=== PATIENT | male | born 1955 | race Caucasian/White ===

== ENCOUNTER 2018-11-05 02:28 | Emergency (ER) | payer BC, OTHER, SELFPAY ==
[2018-11-05 02:29] VITALS: BP 145/79; PULSE 71; RESP 18; TEMP 37.1; O2SAT 97; BMI 34.4
[2018-11-05] MEDS: morphine 10 MG/ML Syringe IM (03:17)
--- NOTE | 2018-11-05 04:04 | ED.VISSUMM ---
- ER Visit Summary Date of Service: 11/05/18 Chief Complaint: Back pain History of Present Illness: The patient is a 63 M who presents with back pain. He has a history of prior back pain. This is been worse for about 2 weeks. He has been going to physical therapy. He was doing much better. On he had no pain and did do some increased activity at therapy. He began to have some pain in the next day. This was mild until tonight when he woke and it was severe. It is all in the right lower back. Is worse with bending or trying to sit up and relieved by remaining still. No numbness tingling weakness radiation to legs fevers abdominal pain urinary retention or fecal incontinence. No history of prior back surgery. Physical Examination: Afebrile vitals normal Moist mucous membranes Heart regular rate and rhythm Lungs clear Abdomen soft Normal inspection of the back nontender palpation Straight leg raise is negative bilaterally Normal strength and sensation of the lower extremities with 5 out of 5 dorsiflexion, plantarflexion, extensor hallucis longus Test Results: Not indicated Emergency Department Course and Treatment: Patient does not have signs or symptoms of acute serious pathology such as cauda equina syndrome or epidural abscess. I do not see an indication for any emergent imaging. He was given intramuscular morphine here. On reevaluation his pain is completely resolved. He was able to ambulate without assistance. We will provide a prescription for a short course of [place]. He was advised to continue therapy and follow-up with his primary care physician. All questions answered at bedside. Patient discharged. Treatment Plan: [] Disposition: Discharge Impression: Acute on chronic lower back pain This note was generated with [employer] dictation software. It may contain incorrect words, spelling, and punctuation that were not noted in review of the chart prior to signing ED Disposition - Plan for ED Patient: Referrals: Pino Turner [Primary Care Provider] -
--- NOTE | 2018-11-05 04:08 | DCINST.ED_ITS ---
ED Disposition - Plan for ED Patient: Instructions: BACK PAIN (Acute or Chronic) Prescriptions: Hydrocodone Bitart/Apap 5-325 [[place] 5MG-325MG] 1 tab PO Q6H PRN PRN 3 Days #12 tab PRN Reason: Pain Prescription Printed Referrals: Pino Turner [Primary Care Provider] -
[2018-11-05 04:18] VITALS: BP 127/73; PULSE 62; RESP 18; O2SAT 96
== END 2018-11-05 04:20 | disposition home or self-care (01) ==
PROVIDERS: Emergency Provider Emergency Medicine; Family Provider Family Medicine; PCP Family Medicine
DX: M54.5 Low back pain (principal); G89.29 Other chronic pain; I10 Essential (primary) hypertension; Z79.899 Other long term (current) drug therapy
CPT/HCPCS: 96372; 99284

== ENCOUNTER 2022-05-22 12:43 | Emergency (ER) | payer BC, MEDICARE, SELFPAY ==
[2022-05-22 12:44] VITALS: BP 143/99; PULSE 65; RESP 14; TEMP 36.6; O2SAT 99; BMI 30.4
--- NOTE | 2022-05-22 13:16 | EX.ED.GENINJ ---
HPI History of Present Illness Chief Complaint: Other, Pain/Inj Detail of Chief Complaint: Bite wound to tongue Informant: patient Narrative Narrative: Patient presents emergency department with a bite wound to his tongue that occurred 3 days ago. Patient states he initially went to an urgent care and they basically told him there was not much they could do for it. The bleeding stopped. Patient states he has some discomfort still to the tongue and went to another urgent care today and they referred him to a general surgeon who told him that they did not deal with tongues. Patient presents to the emergency department for evaluation. He denies fever. Patient states that the urgent care did call him in an antibiotic. Patient's had no further bleeding issues. Patient has history of hypertension otherwise no significant medical history. He is not on blood thinners. [facility] Medical History (Updated 05/22/22 @ 13:[address] Edil Lockwood, ) Cellulitis of tongue Laceration of tongue Home Medications cholecalciferol (vitamin D3) 50 mcg (2,000 unit) capsule (Vitamin D3) 2,000 unit PO DAILY 01/18/17 [History Last Taken Unknown] hydrocodone-acetaminophen 5-325mg 5mg-325mg 1 tab PO Q6H PRN PRN Pain #6 TABLETS 01/18/17 [Rx Last Taken Unknown] meloxicam 15 mg tablet 15 mg PO DAILY 01/18/17 [History Last Taken Unknown] pyridoxine (vitamin B6) 50 mg tablet 100 mg PO DAILY 01/18/17 [History Last Taken Unknown] allopurinol 300 mg tablet 300 mg PO DAILY 05/22/22 [History Last Taken Unknown] amoxicillin 500 mg capsule 500 mg PO BID 10 days #20 caps 05/22/22 [Rx Last Taken Unknown] cyclobenzaprine 5 mg tablet 5 mg PO QHS 05/22/22 [History Last Taken Unknown] hydrochlorothiazide 25 mg tablet 25 mg PO Q OTHER DAY 05/22/22 [History Last Taken Unknown] potassium chloride 10 mEq tablet,extended release(part/cryst) 10 meq PO DAILY 05/22/22 [History Last Taken Unknown] Allergy/AdvReac Type Severity Reaction Status Date / Time No Known Allergies Allergy Verified 05/22/22 12:44 Surgical History (Updated 05/22/22 @ 09:57 by Ying Valderrama) Hx of cholecystectomy Social History (Reviewed 05/22/22 @ 09:57 by Ying Guido Smoking Status: Never smoker ROS ROS ED Review of Systems ROS Unobtainable: other Constitutional Constitutional ED: Reports lethargy; Denies chills, fever(s), sweats or weight loss Eyes Eyes: Denies blurry vision, change in vision or diplopia ENT ENT ED: Reports other Details: Bite wound to tongue ; Denies rhinorrhea or sore throat Cardiovascular Cardiovascular: Reports chest pain and racing heartbeat; Denies orthopnea Respiratory/Chest Respiratory/Chest: Reports dyspnea and dyspnea on exertion; Denies cough, orthopnea or sputum Gastrointestinal Gastrointestinal: Denies abdominal pain, diarrhea, nausea or vomiting Genitourinary Genitourinary ED: Denies dysuria, hematuria or urinary frequency Musculoskeletal Musculoskeletal: Denies arthralgias, back pain, myalgias or neck pain Integumentary Denies abscess, Abrasions or rash Neurologic Neurologic: Denies headache(s) or weakness Psychiatric Psychiatric: Denies anxiety, depression or suicidal thoughts Endocrine Endocrinology: Denies polydipsia, polyphagia or polyuria Hematologic/Lymphatic Hematologic/Lymphatic: Denies easy bleeding, easy bruising or lymphadenopathy Allergic/Immunologic Allergic/Immunologic ED: Denies mouth swelling, tongue swelling or urticaria EXAM Physical Exam Const Vital Signs: 05/22/22 12:44 Temperature 98 F Temperature Source Temporal Pulse Rate 65 Respiratory Rate 14 Blood Pressure 143/99 H Blood Pressure Mean 113 Pulse Ox 99 Oxygen Delivery Method Room Air Positive well nourished and well developed General Appearance ED: well developed and NAD HEENT Reports TM's clear and moist mucous membranes HEENT Narrative: Evaluation of the tongue reveals a old wound to the lateral aspect of the right side of the tongue with a small flap measuring approximately 1.5 cm to 1 cm. Wound is in stages of healing. There is no erythema or abscess or sign of infection otherwise. normocephalic and atraumatic; Negative for trauma or tenderness Tympanic Membrane ED: Yes TM's clear Eyes PERRL and EOMs intact bilaterally General Eye ED: Negative for pale conjunctiva or scleral icterus Neck no lymphadenopathy, supple and no JVD General: Negative for tenderness Chest Wall inspection of chest normal and palpation of chest normal Chest: Negative for tenderness Resp normal respiratory effort and clear to auscultation bilaterally Effort and Inspection: Negative for respiratory distress or pain with movement Auscultation: Negative for rhonchi, wheezes or diminished lung sounds Cardio regular rate, regular rhythm, S1 normal heart sound, S2 normal heart sound and no murmurs Peripheral Pulses: pulses 2+ throughout GI normal to inspection, nondistended, normoactive bowel sounds, soft to palpation, non-tender, non-distended and no masses Back/Spine no CVA tenderness and no thoracic nor lumbar tenderness Extremity normal to inspection General Extremety ED: Negative for edema General Extremity: Negative for edema Neuro oriented x3, CN's II-XII intact bilaterally, no sensory deficits noted and gait normal Sensorium / Orientation: awake, alert, oriented to person, oriented to place and oriented to time Motor Exam: strength 5/5 throughout and strength abnormal Psych mental status grossly normal Skin no rashes or lesions noted and no wounds MDM MDM MDM Narrative Medical decision making narrative: At this pointPlan will be to discuss case with ENT to arrange follow-up. There is no emergent process that needs to be addressed as there is no bleeding. Depending on how this wound heals will need to be reevaluated if the flap does not heal properly may need small amount of resection potentially. The wound is not amenable to any type of suture repair as it is 3 days old. Case was discussed with Dr. Shane Meneses who is on-call for ENT. I was asked to send him pictures of the wound which I did send. Dr. Solares was able to evaluate the wound from the pictures and recommended at this time no further treatment was indicated. He did recommend antibiotics which patient did have prescribed to him today. Also advised him on salt water gargles. Dr. Solares would like to see him in the office in about a month to check progress of healing and to determine if any other intervention would be indicated at that time. I discussed this with patient he is comfortable with plan. Discharge Plan Triage Chief Complaint: Other, Pain/Inj ED Provider: Edil Lockwood Dx/Rx/DC Orders Clinical Impression: Laceration of tongue Instructions: ED Laceration, Old: Not Sutured, ED Laceration, Lip or Mouth Prescriptions: No Action hydrochlorothiazide 25 mg tablet 25 mg PO Q OTHER DAY potassium chloride 10 mEq tablet,ER particles/crystals 10 meq PO DAILY allopurinol 300 mg tablet 300 mg PO DAILY cyclobenzaprine 5 mg tablet 5 mg PO QHS amoxicillin 500 mg capsule 500 mg PO BID 10 Days Qty: 20 0RF meloxicam 15 MG tablet 15 mg PO DAILY pyridoxine (vitamin B6) 50 MG tablet 100 mg PO DAILY cholecalciferol (vitamin D3) [Vitamin D3] 2,000 UNIT capsule 2,000 unit PO DAILY hydrocodone-acetaminophen 1 TABLET tablet 1 tab PO Q6H PRN PRN (Reason: Pain) Qty: 6 0RF Primary Care Provider: Pino Turner Referrals: Shane Meneses MD [Med Staff - Active Staff] - 3-5 Days Pino Turner MD [Primary Care Provider] - Disposition Disposition: Home, Self Care
== END 2022-05-22 13:58 | disposition home or self-care (01) ==
PROVIDERS: Emergency Provider Emergency Medicine; PCP Family Medicine; Visit Provider Emergency Medicine
DX: S01.512A Laceration without foreign body of oral cavity, initial encounter (principal); I10 Essential (primary) hypertension; X58.XXXA Exposure to other specified factors, initial encounter
CPT/HCPCS: 99282

== ENCOUNTER 2022-06-01 08:05 | Emergency (ER) | payer OTHER, BC, MEDICARE, SELFPAY ==
[2022-06-01 08:05] VITALS: BP 136/86; PULSE 75; RESP 18; TEMP 36.4; O2SAT 98; BMI 30.1
--- NOTE | 2022-06-01 08:34 | RAD_ITS ---
EXAM: XR LEFT FOOT COMPLETE, 3 OR MORE VIEWS CLINICAL INDICATION: Left foot injury. TECHNIQUE: Frontal, lateral and oblique views of the left foot. This report was created using [employer] report getupp technology. COMPARISON: None. FINDINGS: BONES/JOINTS: Well-corticated bone overlying the base of the fifth metatarsal is presumably from remote injury. Minimal medial subluxation of the proximal phalanx of the left fifth toe relative to its alignment with the first metatarsal head. Small posterior plantar calcaneal spur. Minimal calcific enthesopathy in the posterior calcaneal surface. No acute fracture. Preservation of the joint space. No sclerotic or destructive changes observed. SOFT TISSUES: Unremarkable. No soft tissue swelling or gas. No radiopaque foreign body. RAD/Foot min 3 Views IMPRESSION: No acute fracture or dislocation in the left foot. Electronically Signed: Krishna Ham MD at 9:01 EST ,
--- NOTE | 2022-06-01 08:34 | ED.VIS.LOWEX ---
HPI History of Present Illness Chief Complaint: Lower Extremity Injury Informant: patient Onset/Context/Timing Onset: Days (4-days) Narrative Narrative: Patient present secondary to left foot injury. 2 weeks ago he was seen by podiatry, Dr. Carcamo, for a heel spur. He was off work for a week and feeling better. He went back to work last week. Wednesday afternoon he tripped over a machine at work and injured his left foot. He now complains of pain along the lateral aspect of his foot. [facility] Medical History Cellulitis of tongue Laceration of tongue Home Medications cholecalciferol (vitamin D3) 50 mcg (2,000 unit) capsule (Vitamin D3) 2,000 unit PO DAILY 01/18/17 [History Last Taken Unknown] hydrocodone-acetaminophen 5-325mg 5mg-325mg 1 tab PO Q6H PRN PRN Pain #6 TABLETS 01/18/17 [Rx Last Taken Unknown] meloxicam 15 mg tablet 15 mg PO DAILY 01/18/17 [History Last Taken Unknown] pyridoxine (vitamin B6) 50 mg tablet 100 mg PO DAILY 01/18/17 [History Last Taken Unknown] allopurinol 300 mg tablet 300 mg PO DAILY 05/22/22 [History Last Taken Unknown] cyclobenzaprine 5 mg tablet 5 mg PO QHS 05/22/22 [History Last Taken Unknown] hydrochlorothiazide 25 mg tablet 25 mg PO Q OTHER DAY 05/22/22 [History Last Taken Unknown] potassium chloride 10 mEq tablet,extended release(part/cryst) 10 meq PO DAILY 05/22/22 [History Last Taken Unknown] Allergy/AdvReac Type Severity Reaction Status Date / Time No Known Allergies Allergy Verified 06/01/22 08:08 Surgical History Hx of cholecystectomy Social History Smoking Status: Never smoker ROS ROS ED Constitutional Constitutional ED: Denies chills or fever(s) Eyes Eyes: Denies change in vision or discharge from eye(s) ENT ENT ED: Denies discharge from eye(s), rhinorrhea or sore throat Cardiovascular Cardiovascular: Denies chest pain or palpitations Respiratory/Chest Respiratory/Chest: Denies cough or dyspnea Gastrointestinal Gastrointestinal: Denies abdominal pain, diarrhea, nausea or vomiting Genitourinary Genitourinary ED: Denies difficulty urinating or dysuria Musculoskeletal Musculoskeletal: Reports extremity pain; Denies back pain Integumentary Denies Abrasions or rash Neurologic Neurologic: Denies headache(s) or weakness Psychiatric Psychiatric: Denies anxiety or depression Allergic/Immunologic Allergic/Immunologic ED: Denies lip swelling or urticaria EXAM Physical Exam Const Vital Signs: 06/01/22 08:05 Temperature 97.6 F L Temperature Source Temporal Pulse Rate 75 Respiratory Rate 18 Blood Pressure 136/86 H Blood Pressure Mean 102 Pulse Ox 98 Oxygen Delivery Method Room Air Positive well nourished and well developed General Appearance ED: well developed HEENT Reports normocephalic and head/scalp atraumatic Eyes PERRL and EOMs intact bilaterally Neck supple Chest Wall inspection of chest normal and palpation of chest normal Resp normal respiratory effort Cardio regular rate and regular rhythm GI Palpation: soft Extremity Extremity Narrative: Tenderness to palpation and edema over the lateral aspect of the left foot along the fourth and fifth metatarsals. No tenderness at the ankle joint itself. Good cap refill distally. Neuro oriented x3 and no sensory deficits noted Sensorium / Orientation: alert Motor Exam: strength 5/5 throughout Psych mental status grossly normal Skin no rashes or lesions noted MDM MDM MDM Narrative Medical decision making narrative: Left foot x-rays obtained. Radiography Diagnostic Testing: Clinical Impression(s) from Imaging Studies Foot X-Ray 06/01/22 08:34 IMPRESSION: No acute fracture or dislocation in the left foot. Electronically Signed: Krishna Ham MD at 9:01 EST , Treatment and Re-Evaluation Narrative: Left foot x-ray per my interpretation reveals no acute fracture. Chronic arthritic changes are noted. Radiology interpretation is reviewed and agrees. Anjel wrap is applied to the left foot. He was instructed that he has a sprain. He is encouraged to ice and elevate his foot. He will be written for work restrictions. He is to follow-up with corporate care and he does have follow-up scheduled with podiatry tomorrow given his heel spur. Discharge Plan Triage Chief Complaint: Lower Extremity Injury ED Provider: Rosemarie Dempsey Dx/Rx/DC Orders Clinical Impression: Sprain of left foot Instructions: ED Foot Sprain Prescriptions: No Action hydrochlorothiazide 25 mg tablet 25 mg PO Q OTHER DAY potassium chloride 10 mEq tablet,ER particles/crystals 10 meq PO DAILY allopurinol 300 mg tablet 300 mg PO DAILY cyclobenzaprine 5 mg tablet 5 mg PO QHS meloxicam 15 MG tablet 15 mg PO DAILY pyridoxine (vitamin B6) 50 MG tablet 100 mg PO DAILY cholecalciferol (vitamin D3) [Vitamin D3] 2,000 UNIT capsule 2,000 unit PO DAILY hydrocodone-acetaminophen 1 TABLET tablet 1 tab PO Q6H PRN PRN (Reason: Pain) Qty: 6 0RF Stand Alone Forms: Work Status Form Primary Care Provider: Pino Turner Referrals: Pino Turner MD [Primary Care Provider] - Disposition Disposition: Home, Self Care
== END 2022-06-01 09:20 | disposition home or self-care (01) ==
PROVIDERS: Emergency Provider Emergency Medicine; PCP Family Medicine; Visit Provider Emergency Medicine
DX: S93.602A Unspecified sprain of left foot, initial encounter (principal); M77.30 Calcaneal spur, unspecified foot; W18.40XA Slipping, tripping and stumbling without falling, unspecified, initial encounter
CPT/HCPCS: 73630; 99282

== ENCOUNTER → 2024-05-30 | Outpatient (CLI) | payer MEDICARE, SELFPAY ==
--- NOTE | 2024-05-30 13:00 | RAD_ITS ---
EXAM: XR Chest, 2 Views CLINICAL INDICATION: TECHNIQUE: Frontal and lateral views of the chest. COMPARISON: No relevant prior studies available. FINDINGS: LUNGS AND PLEURAL SPACES: Unremarkable. No consolidation. No pneumothorax. HEART: Unremarkable. No cardiomegaly. MEDIASTINUM: Unremarkable. Normal mediastinal contour. BONES/JOINTS: Unremarkable. No acute fracture. RAD/Chest PA and Lateral IMPRESSION: No acute cardiopulmonary process. Reading [facility]
== END | disposition home or self-care (01) ==
PROVIDERS: PCP Family Medicine; Referring Provider Nurse Practitioner; Visit Provider Nurse Practitioner
DX: R05.9 Cough, unspecified (principal)
CPT/HCPCS: 71046

== ENCOUNTER 2025-02-26 16:12 | Day surgery (SDC) | payer MEDICARE, SELFPAY ==
[2025-02-26] VITALS (10 sets, daily range): BP systolic 111–164; BP diastolic 68–108; PULSE 58–77; RESP 13–24; TEMP 36.6–36.8; O2SAT 97–100; BMI 29.8
--- NOTE | 2025-02-26 16:32 | ED.VIS.GI ---
HPI HPI - GI History of Present Illness Chief Complaint: Foreign Body Narrative Narrative: 69-year-old male past medical history of hypertension presents with his because of foreign body sensation in his esophagus. He states food never gotten stuck previously. Approximately an hour and a half ago he was eating a tough steak at home. He feels a piece of cotton stuck in his mid chest level. Try to drink cold water and a whole panel pop, but ends up regurgitating it. He remains nauseated. Denies other symptoms. [facility] Medical History (Updated 02/26/25 @ 17:45 by Krishna Guerrero MD) Non-smoker Hypertension Partial thickness burn of left hand Impacted cerumen of both ears Influenza A Cellulitis of tongue Laceration of tongue Home Medications ?Medication ?Instructions ?Recorded ?Last Taken ?Type cholecalciferol (vitamin D3) 50 2,000 unit PO DAILY 01/18/17 Unknown History mcg (2,000 unit) capsule (Vitamin D3) hydrocodone-acetaminophen 5-325mg 1 tab PO Q6H PRN PRN Pain #6 01/18/17 Unknown Rx 5mg-325mg TABLETS meloxicam 15 mg tablet 15 mg PO DAILY 01/18/17 Unknown History pyridoxine (vitamin B6) 50 mg 100 mg PO DAILY 01/18/17 Unknown History tablet allopurinol 300 mg tablet 300 mg PO DAILY 05/22/22 Unknown History cyclobenzaprine 5 mg tablet 5 mg PO QHS 05/22/22 Unknown History hydrochlorothiazide 25 mg tablet 25 mg PO Q OTHER DAY 05/22/22 Unknown History potassium chloride 10 mEq 10 meq PO DAILY 05/22/22 Unknown History tablet,extended release(part/cryst) benzonatate 200 mg capsule 200 mg PO TID PRN cough #20 caps 02/21/25 Unknown Rx methylprednisolone 4 mg tablets in See Rx Instructions PO PER PKG DIR 02/21/25 Unknown Rx a dose pack (Medrol (Alex)) #21 tabs Allergy/AdvReac Type Severity Reaction Status Date / Time No Known Allergies Allergy Verified 02/21/25 17:13 Surgical History Hx of cholecystectomy Social History Smoking Status: Never smoker ROS ROS ED ROS Narrative Review of systems positive for foreign body of esophagus with nausea. No exacerbating or alleviating factors. EXAM Physical Exam Narrative Exam Narrative: Afebrile. Vital signs noted. Nontoxic-appearing. Cardiovascular examination reveals regular rate and rhythm. Lungs are clear to auscultation bilaterally. Mild tachypnea. Abdomen soft and nontender with positive bowel sounds. No guarding or rebound. Airway patent. No drooling or trismus. Neurological examination nonfocal, nonlateralizing. Positive anxiety. Const Vital Signs: 02/26/25 16:12 02/26/25 16:15 02/26/25 17:12 Temperature 98.3 F Temperature Source Oral Pulse Rate 77 62 Respiratory Rate 24 H 13 Respiratory Effort Short of Breath Blood Pressure 164/108 H 133/93 H Blood Pressure Mean 126 106 Pulse Ox 100 99 Oxygen Delivery Method Room Air Room Air 02/26/25 18:00 Temperature Temperature Source Pulse Rate 61 Respiratory Rate 20 H Respiratory Effort Blood Pressure 128/71 H Blood Pressure Mean 90 Pulse Ox 99 Oxygen Delivery Method Room Air MDM MDM MDM Narrative Medical decision making narrative: Differential diagnosis includes but not limited to foreign body sensation versus esophageal food impaction. Patient most recently tried diet Coke, but vomited it back up. He will be given glucagon 1 mg IV after saline lock established. I will discuss the patient with Dr. Stoll with gastroenterology. I did discuss patient with Dr. Stoll who suggested Ativan 0.5 mg IV as well as Protonix 40 mg intravenously. Patient was given a p.o. challenge 30 minutes after medications. He failed a bedside swallow at approximately 1740. I discussed the patient with Dr. Stoll again as he needs to be taken to the endoscopy suite for esophageal food impaction. Patient discussed with Dr. Stoll. Disposition is to endoscopy suite. Patient is in stable condition. History & Record Review Discussion w/independent historian: Patient Management Discussion w/another healthcare provider: Gang Pusher (Dr. Stoll, gastroenterology) Discharge Plan Dx/Rx/DC Orders Clinical Impression: Esophageal obstruction due to food impaction, Nausea, Hypertension Disposition Disposition: Acute Care [facility]
[2025-02-26] MEDS: Glucagon 1 MG/ML Syringe IV (16:41)
[2025-02-26] MEDS: Pantoprazole Sodium 40 MG in 0.9% Normal Saline (50mL Bag) 15 ML 420 MG IV BOLUS (17:09)
--- NOTE | 2025-02-26 17:41 | ED.RN ---
dr hudson notified that pt. was unsuccessful in passing foreign material after being medicated
--- NOTE | 2025-02-26 19:28 | ED.RN ---
report given to OR.
--- NOTE | 2025-02-26 19:30 | PCM.PRE.AN2 ---
ASA Classification* ASA Classification ASA Classification: 2 and E Assessment & Plan Anesthesia* Anesthesia Assessment Anesthesia Assessment: Discussed sedation and/or anesthesia options, risks, benefits, and alternatives with patient/parents/legal guardian/POA. Questions invited. The patient/parents/legal guardian/POA seems to understand and agrees to proceed with anesthesia plan. Reviewed the physical assessment, medical history, allergy history and patient home medications list prior to surgery/procedure/anesthetic and documented any changes. Performed airway and anesthesia risk assessments. Anesthesia Type Anesthesia Type: MAC Anesthesia Focused Assessment* Temperature: 98.3 F Pulse Rate: 72 Blood Pressure: 141/68 Respiratory Rate: 20 Pulse Ox: 100 Airway Assessment Mouth opens: >3 cm Mallampati Score: II Labs Anesthesia Preop lab: CBC CHEMISTRY COAG Pre-Assessment Diagnosis/Proposed Procedure Planned Operative Procedure(s): Removal removal foreign body esophagus. Anesthesia History Anesthesia History - technical program manager: Anesthesia History - technical program manager Hx Hospitalization Any Problems With Anesthesia Cholinesterase deficiency You/Your Family Experience fever (hyperthermia) with Relationship Recent Exposure to Contagious Disease Does patient have nerve stimulator Patient instructed to have device shut off --Does patient have Pacemaker or ICD? When Was Last Pacemaker Check QUESTION #4 FULL TEXT: You/Your Family Experience fever (hyperthermia) with Anesthesia Last Oral Intake Last Oral intake: Last Oral Intake NPO since Meds taken in AM with sips of water? Meds patient instructed to take am of surgery PONV PONV - technical program manager: PONV - technical program manager Female HX of Motion Sickness HX of N/V After Surgery Non-Smoker Duration of Surgery greater than 60 minutes Number of Risk Factors PONV Score Height & Weight Height & Weight: Anesthesia: Height & Weight Height 5 ft 10 in 02/26/25 16:12 Weight: 94.4 kg 02/26/25 16:49 Body Mass Index (BMI) 29.8 02/26/25 16:49 Respiratory Assessment Respiratory Assessment - technical program manager: Respiratory Tract Infection Hx - technical program manager Hx Respiratory Tract Infection STOP Sleep Apnea STOP Sleep Apnea - technical program manager: STOP Sleep Apnea - technical program manager Hx Hypertension Yes 05/22/22 09:13 Hx Sleep Apnea CPAP BIPAP Do you snore loudly (louder than talking or can be heard Do you often feel tired/ fatigued/ sleepy during daytime? Has anyone observed you stop breathing during sleep? STOP Results QUESTION #5 FULL TEXT : Do you snore loudly (louder than talking or can be heard through closed doors)? 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 Specify any problems Hx of Preganancy in last 3 Months Nurse Filling Out Transfusion & Questions: Date: Time: Patient unable to answer at this time (ie. confused, unrespo /Reproduction History /Reproductive History - technical program manager: /Reproductive Hx- technical program manager Hx Now Gestational Age (in weeks): EDC: Hx Hx Para Hx Section SAB PFSH Medical History Non-smoker Hypertension Partial thickness burn of left hand Impacted cerumen of both ears Influenza A Cellulitis of tongue Laceration of tongue Home Medications ?Medication ?Instructions ?Recorded ?Last Taken ?Type cholecalciferol (vitamin D3) 50 2,000 unit PO DAILY 01/18/17 02/26/25 History mcg (2,000 unit) capsule (Vitamin D3) meloxicam 15 mg tablet 15 mg PO DAILY 01/18/17 02/26/25 History pyridoxine (vitamin B6) 50 mg 100 mg PO DAILY 01/18/17 02/26/25 History tablet allopurinol 300 mg tablet 300 mg PO DAILY 05/22/22 02/26/25 History cyclobenzaprine 5 mg tablet 5 mg PO QHS PRN muscle pain 05/22/22 Unknown History hydrochlorothiazide 25 mg tablet 25 mg PO DAILY 05/22/22 02/26/25 History potassium chloride 10 mEq 10 meq PO DAILY 05/22/22 02/26/25 History tablet,extended release(part/cryst) benzonatate 200 mg capsule 200 mg PO TID PRN cough #20 caps 02/21/25 Unknown Rx methylprednisolone 4 mg tablets in See Rx Instructions PO PER PKG DIR 02/21/25 02/26/25 Rx a dose pack (Medrol (Alex)) #21 tabs Allergy/AdvReac Type Severity Reaction Status Date / Time No Known Allergies Allergy Verified 02/21/25 17:13 Surgical History Hx of cholecystectomy Social History Smoking Status: Never smoker Review of Systems (Anesthesia) ROS Narrative System reviewed and no additional complaints, except as documented.
--- NOTE | 2025-02-26 19:31 | PCM.HP.STD ---
HPI - General General Date of Admission: 02/26/25 Date of Service: 02/26/25 Chief Complaint: dysphagia HPI Narrative LULU CHEUNG, is a 69-year-old male past medical history of hypertension presents with his because of foreign body sensation in his esophagus. He states food never gotten stuck previously. Approximately an hour and a half ago he was eating a tough steak at home. He feels a piece of cotton stuck in his mid chest level. Try to drink cold water and a whole panel pop, but ends up regurgitating it. [facility] Medical History Non-smoker Hypertension Partial thickness burn of left hand Impacted cerumen of both ears Influenza A Cellulitis of tongue Laceration of tongue Home Medications ?Medication ?Instructions ?Recorded ?Last Taken ?Type cholecalciferol (vitamin D3) 50 2,000 unit PO DAILY 01/18/17 02/26/25 History mcg (2,000 unit) capsule (Vitamin D3) meloxicam 15 mg tablet 15 mg PO DAILY 01/18/17 02/26/25 History pyridoxine (vitamin B6) 50 mg 100 mg PO DAILY 01/18/17 02/26/25 History tablet allopurinol 300 mg tablet 300 mg PO DAILY 05/22/22 02/26/25 History cyclobenzaprine 5 mg tablet 5 mg PO QHS PRN muscle pain 05/22/22 Unknown History hydrochlorothiazide 25 mg tablet 25 mg PO DAILY 05/22/22 02/26/25 History potassium chloride 10 mEq 10 meq PO DAILY 05/22/22 02/26/25 History tablet,extended release(part/cryst) benzonatate 200 mg capsule 200 mg PO TID PRN cough #20 caps 02/21/25 Unknown Rx methylprednisolone 4 mg tablets in See Rx Instructions PO PER PKG DIR 02/21/25 02/26/25 Rx a dose pack (Medrol (Alex)) #21 tabs Allergy/AdvReac Type Severity Reaction Status Date / Time No Known Allergies Allergy Verified 02/21/25 17:13 Surgical History Hx of cholecystectomy Social History Smoking Status: Never smoker ROS Constitutional Constitutional: Denies fatigue, fever(s), poor appetite, weight gain or weight loss Gastrointestinal Gastrointestinal: Denies belching, bloating, change in bowel habits, change in stool character, chewing difficulty, coffee ground emesis, constipation, cramping, diarrhea, dyspepsia, dysphagia, early satiety, excessive flatus, fecal incontinence, heartburn, hematemesis, hematochezia, hemorrhoids, loose stools, melena, nausea, odynophagia, rectal bleeding, tenesmus, vomiting or weight changes Vital Signs Vital Signs Vital Signs: 02/26/25 16:12 02/26/25 16:15 02/26/25 17:12 Temperature 98.3 F Temperature Source Oral Pulse Rate 77 62 Respiratory Rate 24 H 13 Respiratory Effort Short of Breath Blood Pressure 164/108 H 133/93 H Blood Pressure Mean 126 106 Pulse Ox 100 99 Oxygen Delivery Method Room Air Room Air 02/26/25 18:00 02/26/25 19:00 02/26/25 19:22 Temperature 98.3 F Temperature Source Pulse Rate 61 72 72 Respiratory Rate 20 H 20 H 20 H Respiratory Effort Blood Pressure 128/71 H 141/68 H 141/68 H Blood Pressure Mean 90 92 92 Pulse Ox 99 100 100 Oxygen Delivery Method Room Air Room Air 02/26/25 19:30 Temperature 98.3 F Temperature Source Pulse Rate 72 Respiratory Rate 20 H Respiratory Effort Blood Pressure 141/68 H Blood Pressure Mean Pulse Ox 100 Oxygen Delivery Method Weight Weight: 208 lb 1.862 oz Body Mass Index (BMI) 29.8 Physical Exam Const alert, oriented x3, no apparent distress and healthy appearing General Appearance: cooperative GI normal to inspection, nondistended, normoactive bowel sounds, soft to palpation, non-tender and non-distended Percussion: normal to percussion Rectal Exam: deferred Assessment & Plan Assessment/Plan (1) Esophageal obstruction due to food impaction: PLAN: He will undergo an upper endoscopy with food impaction removal. He was explained alternatives, risk and benefits clued anesthetic bleeding complex, septal, perforation, need for surgery . He will have an ASA of 3.
[2025-02-26] MEDS: LACTATED RINGERS IV (19:48)
[2025-02-26] MEDS: Lidocaine 1% (5 ml sdv) 5 ML Vial 3 ML IV (20:08)
--- NOTE | 2025-02-26 20:10 | OP.EGD_ITS ---
Patient Name: Fawad Taylor
--- NOTE | 2025-02-26 20:19 | POSTOP.ANE_ITS ---
Anesthesia: Postop Eval I
--- NOTE | 2025-02-26 20:19 | PCM.POST.ANE ---
Anesthesia: Postop Eval I Current Vital Signs Temperature: 97.8 F Pulse Rate: 68 Blood Pressure: 128/76 Respiratory Rate: 16 Pulse Ox: 97 Oxygen Delivery Method: Room Air Assessment Airway patent: Yes Spontaneous unlabored respirations: Yes Mental status: Awake and Calm nausea: No Vomiting: No Anesthesia Complication: No Fluid Hydration Crystalloid volume administer (ml): 50 Total IV fluid infused: 50 Progress Note Anesthesia document: Postop Eval 1 completed: Yes
--- NOTE | 2025-02-26 20:20 | POSTOPAN2_ITS ---
Anesthesia Postop Eval I Sum
--- NOTE | 2025-02-26 20:20 | PCM.POSTANE2 ---
Anesthesia Postop Eval I Sum Postop Eval Completion status Anesthesia document: Postop Eval 1 completed: Yes Anesthesia Postop Eval I Summary Anesthesia Postop Eval I Summary: Anesthesia Postop Eval I: Assessment Summary Airway patent Yes 02/26/25 20:20 Spontaneous unlabored Yes 02/26/25 20:20 respirations Mental status Awake,Calm 02/26/25 20:20 nausea No 02/26/25 20:20 Vomiting No 02/26/25 20:20 Anesthesia Postop Eval I: Fluid Summary Crystalloid volume administer 50 02/26/25 20:20 (ml) Colloids volume administered ( ml) Blood Product volume administered (ml) Total IV fluid infused 50 02/26/25 20:20 Anesthesia Postop Eval I: Summary Notes Anesthesia Complication No 02/26/25 20:20 Anesthesia Complication Comment: Post-operative progress note Anesthesia: Postop Eval II Evaluation Mental status: Awake Pain Level: 0 nausea: No Vomiting: No
--- NOTE | 2025-02-27 08:57 | POSTOPAN2_ITS ---
Anesthesia Postop Eval I Sum
--- NOTE | 2025-02-27 08:57 | PCM.POSTANE2 ---
Anesthesia Postop Eval I Sum Postop Eval Completion status Anesthesia document: Postop Eval 1 completed: Yes Anesthesia Postop Eval I Summary Anesthesia Postop Eval I Summary: Anesthesia Postop Eval I: Assessment Summary Airway patent Yes 02/26/25 20:20 Spontaneous unlabored Yes 02/26/25 20:20 respirations Mental status Awake 02/26/25 20:20 nausea No 02/26/25 20:20 Vomiting No 02/26/25 20:20 Anesthesia Postop Eval I: Fluid Summary Crystalloid volume administer 50 02/26/25 20:20 (ml) Colloids volume administered ( ml) Blood Product volume administered (ml) Total IV fluid infused 50 02/26/25 20:20 Anesthesia Postop Eval I: Summary Notes Anesthesia Complication No 02/26/25 20:20 Anesthesia Complication Comment: Post-operative progress note Anesthesia: Postop Eval II Evaluation Mental status: Awake and Calm Pain Level: 1 nausea: No Vomiting: No Complications Anesthesia Complication: No
== END 2025-02-26 20:57 | disposition home or self-care (01) ==
LOC: ED 19:28 → SDC 19:38 → ACINP 19:39
PROVIDERS: Emergency Provider Emergency Medicine; PCP Family Medicine; Visit Provider Internal Medicine Gastroenterology
PROC: 0DJ08ZZ Inspection of Upper Intestinal Tract, Via Natural or Artificial Opening Endoscopic (ICD-10-PCS; CPT 43235; principal; 2025-02-26 19:45)
DX: R13.10 Dysphagia, unspecified (principal); K22.2 Esophageal obstruction; I10 Essential (primary) hypertension; R11.0 Nausea; Z79.899 Other long term (current) drug therapy; Z90.49 Acquired absence of other specified parts of digestive tract; T18.128A Food in esophagus causing other injury, initial encounter; W44.F3XA Food entering into or through a natural orifice, initial encounter
CPT/HCPCS: 43247; 99283; A4216; J1610; J2405